=== PATIENT | male | born 1960 | race African-American/Black ===

== ENCOUNTER 2017-10-29 12:08 | Emergency (ER) | payer OTHER, MEDICAID ==
[2017-10-29 14:37] VITALS: BP 156/105
== END 2017-10-29 14:37 | disposition home or self-care (01) ==
LOC: ED 12:08
DX: R06.02 Shortness of breath (principal); Z59.0 Homelessness
CPT/HCPCS: J7613; J7644; Q0092

== ENCOUNTER 2017-10-30 00:34 | Emergency (ER) | payer OTHER, MEDICAID ==
[2017-10-30 02:11] VITALS: BP 150/86
== END 2017-10-30 02:11 | disposition home or self-care (01) ==
LOC: ED 00:34
DX: S16.1XXA Strain of muscle, fascia and tendon at neck level, initial encounter (principal); M62.830 Muscle spasm of back; F17.210 Nicotine dependence, cigarettes, uncomplicated; X50.9XXA Other and unspecified overexertion or strenuous movements or postures, initial encounter; Y93.89 Activity, other specified; Y99.8 Other external cause status; Y92.89 Other specified places as the place of occurrence of the external cause

== ENCOUNTER 2017-10-31 08:52 | Emergency (ER) | payer OTHER, MEDICAID ==
[~2017-10-31] VITALS: Ht 180.3 cm; Wt 85.3 kg
[2017-10-31 12:36] VITALS: BP 130/89
== END 2017-10-31 12:36 | disposition home or self-care (01) ==
LOC: ED 08:52
DX: S92.022A Displaced fracture of anterior process of left calcaneus, initial encounter for closed fracture (principal); G89.29 Other chronic pain; M54.2 Cervicalgia; G40.909 Epilepsy, unspecified, not intractable, without status epilepticus; Z59.0 Homelessness; X58.XXXA Exposure to other specified factors, initial encounter; Y93.89 Activity, other specified; Y99.8 Other external cause status; Y92.89 Other specified places as the place of occurrence of the external cause

== ENCOUNTER 2017-11-11 21:01 | Inpatient (IN) | payer OTHER, MEDICAID ==
[~2017-11-11] VITALS: Ht 170.2 cm; Wt 97.3 kg
[2017-11-11 22:44] LABS: BASOPHIL % 0.9 % (0-2); PLATELET COUNT 216 x10^3mcL (130-400); RED CELL DISTRIBUTION WIDTH 13.8 % (11.5-14.5)
[2017-11-11 22:53] LABS: CALCIUM 8.6 mg/dL (8.5-10.1); CARBON DIOXIDE 28.5 mmol/L (21-32); CHLORIDE SERUM 99 mmol/L (98-107); CREATININE SERUM 1.9 mg/dL (0.7-1.3); GFR1 39 mL/min; GLUCOSE SERUM 119 mg/dL (74-106); POTASSIUM SERUM 3.2 mmol/L (3.5-5.1); SODIUM SERUM 135 mmol/L (136-145)
[2017-11-11 22:57] LABS: ALBUMIN 3.6 g/dL (3.4-5.0); ALKALINE PHOSPHATASE 76 U/L (46-116); ALT/SGPT 140 U/L (16-63); AST/SGOT 347 U/L (15-37); BILIRUBIN TOTAL 0.4 mg/dL (0.20-1.00)
[2017-11-12] VITALS (15 sets, daily range): BP systolic 121–182; BP diastolic 60–138
[2017-11-12 00:33] LABS: AMPHETAMINE QUAL UR NONE DETECTED (NEG <=1000)
[2017-11-12 03:14] LABS: MAGNESIUM 2.3 mg/dL (1.8-2.4); PHOSPHOROUS 3.6 mg/dL (2.5-4.9)
[2017-11-12 03:17] LABS: FREE T4 0.17 ng/dL (0.76-1.46)
[2017-11-12 03:44] LABS: CHOLESTEROL/HDL RATIO 1.9
[2017-11-12 03:45] LABS: FREE THYROXINE INDEX 0.1 ug/dL (1.4-4.5); T4(THYROXINE) 0.3 ug/dL (4.7-13.3)
[2017-11-12 16:29] LABS: UA SPECIFIC GRAVITY 1.015 (1.005-1.035); microscopic required? YES; urine erythrocyte 3+ (NEGATIVE)
[2017-11-12 18:11] LABS: IRON 24 ug/dL (65-170); TOTAL IRON BINDING CAPACITY 290 ug/dL (250-450)
[2017-11-12 18:52] LABS: RED BLOOD CELLS 4.27 M/mm3 (4.52-5.90)
[2017-11-13] VITALS (16 sets, daily range): BP systolic 121–163; BP diastolic 69–128
[2017-11-13 05:20] LABS: BASOPHIL % 0.1 % (0-2); PLATELET COUNT 217 x10^3mcL (130-400)
[2017-11-13 05:26] LABS: RED CELL DISTRIBUTION WIDTH 15.1 % (11.5-14.5)
[2017-11-13 05:42] LABS: CALCIUM 7.9 mg/dL (8.5-10.1); CARBON DIOXIDE 26.6 mmol/L (21-32); CHLORIDE SERUM 106 mmol/L (98-107); CREATININE SERUM 1.1 mg/dL (0.7-1.3); GFR1 > 60 mL/min; GLUCOSE SERUM 123 mg/dL (74-106); MAGNESIUM 2.2 mg/dL (1.8-2.4); PHOSPHOROUS 3.6 mg/dL (2.5-4.9); POTASSIUM SERUM 3.5 mmol/L (3.5-5.1); SODIUM SERUM 140 mmol/L (136-145)
[2017-11-13 05:44] LABS: FREE T4 0.33 ng/dL (0.76-1.46)
[2017-11-13 05:45] LABS: FREE THYROXINE INDEX 0.5 ug/dL (1.4-4.5); T4(THYROXINE) 1.4 ug/dL (4.7-13.3)
[2017-11-14] VITALS (18 sets, daily range): BP systolic 119–160; BP diastolic 65–94
[2017-11-14 05:22] LABS: PLATELET COUNT 210 x10^3mcL (130-400)
[2017-11-14 05:25] LABS: BASOPHIL % 0 % (0-2); RED CELL DISTRIBUTION WIDTH 15.6 % (11.5-14.5)
[2017-11-14 05:41] LABS: CALCIUM 8.2 mg/dL (8.5-10.1); CARBON DIOXIDE 24.1 mmol/L (21-32); CHLORIDE SERUM 109 mmol/L (98-107); CREATININE SERUM 1.1 mg/dL (0.7-1.3); GFR1 > 60 mL/min; GLUCOSE SERUM 156 mg/dL (74-106); MAGNESIUM 2.3 mg/dL (1.8-2.4); PHOSPHOROUS 2.8 mg/dL (2.5-4.9); POTASSIUM SERUM 3.3 mmol/L (3.5-5.1); SODIUM SERUM 142 mmol/L (136-145)
[2017-11-14 22:15] LABS: FREE T4 0.35 ng/dL (0.76-1.46)
[2017-11-14 22:20] LABS: FREE THYROXINE INDEX 0.7 ug/dL (1.4-4.5); T4(THYROXINE) 2.3 ug/dL (4.7-13.3)
[2017-11-15] VITALS (17 sets, daily range): BP systolic 127–154; BP diastolic 50–99
[2017-11-15 05:19] LABS: CALCIUM 8.4 mg/dL (8.5-10.1); CARBON DIOXIDE 26.3 mmol/L (21-32); CHLORIDE SERUM 109 mmol/L (98-107); CREATININE SERUM 1.2 mg/dL (0.7-1.3); GFR1 > 60 mL/min; GLUCOSE SERUM 161 mg/dL (74-106); POTASSIUM SERUM 3.5 mmol/L (3.5-5.1); SODIUM SERUM 143 mmol/L (136-145)
[2017-11-15 05:38] LABS: PLATELET COUNT 221 x10^3mcL (130-400)
[2017-11-15 05:39] LABS: BASOPHIL % 0 % (0-2); RED CELL DISTRIBUTION WIDTH 16.1 % (11.5-14.5)
[2017-11-16] VITALS (11 sets, daily range): BP systolic 136–177; BP diastolic 71–108
[2017-11-16 04:47] LABS: BASOPHIL % 0.2 % (0-2); PLATELET COUNT 210 x10^3mcL (130-400)
[2017-11-16 04:49] LABS: RED CELL DISTRIBUTION WIDTH 15.7 % (11.5-14.5)
[2017-11-16 04:51] LABS: CALCIUM 8.3 mg/dL (8.5-10.1); CARBON DIOXIDE 29.1 mmol/L (21-32); CHLORIDE SERUM 106 mmol/L (98-107); CREATININE SERUM 1.1 mg/dL (0.7-1.3); GFR1 > 60 mL/min; GLUCOSE SERUM 181 mg/dL (74-106); POTASSIUM SERUM 3.1 mmol/L (3.5-5.1); SODIUM SERUM 142 mmol/L (136-145)
[2017-11-16 05:02] LABS: T3 TOTAL 0.07 ng/mL
[2017-11-16 05:05] LABS: FREE T4 0.39 ng/dL (0.76-1.46)
[2017-11-16 05:10] LABS: FREE THYROXINE INDEX 0.7 ug/dL (1.4-4.5)
[2017-11-17 03:17] VITALS: BP 158/94
[2017-11-17 05:16] LABS: BASOPHIL % 0.1 % (0-2); PLATELET COUNT 209 x10^3mcL (130-400)
[2017-11-17 05:22] LABS: RED CELL DISTRIBUTION WIDTH 15.9 % (11.5-14.5)
[2017-11-17 05:32] LABS: CALCIUM 8.5 mg/dL (8.5-10.1); CARBON DIOXIDE 33.9 mmol/L (21-32); CHLORIDE SERUM 100 mmol/L (98-107); CREATININE SERUM 1.1 mg/dL (0.7-1.3); GFR1 > 60 mL/min; GLUCOSE SERUM 138 mg/dL (74-106); PHOSPHOROUS 2.8 mg/dL (2.5-4.9); SODIUM SERUM 139 mmol/L (136-145)
[2017-11-17 05:36] LABS: FREE T4 0.43 ng/dL (0.76-1.46)
[2017-11-17 05:41] LABS: T3 TOTAL 0.08 ng/mL
[2017-11-17 05:46] LABS: FREE THYROXINE INDEX 0.4 ug/dL (1.4-4.5); T4(THYROXINE) 1.2 ug/dL (4.7-13.3)
[2017-11-17 05:47] LABS: POTASSIUM SERUM 2.5 mmol/L (3.5-5.1)
[2017-11-17 07:57] VITALS: BP 146/76
[2017-11-17 08:25] VITALS: Ht 170.2 cm; Wt 97.3 kg
[2017-11-17 12:57] VITALS: BP 137/79
[2017-11-17 14:29] LABS: CALCIUM 8.4 mg/dL (8.5-10.1); CARBON DIOXIDE 34.2 mmol/L (21-32); CHLORIDE SERUM 100 mmol/L (98-107); CREATININE SERUM 1.2 mg/dL (0.7-1.3); GFR1 > 60 mL/min; GLUCOSE SERUM 135 mg/dL (74-106); SODIUM SERUM 140 mmol/L (136-145)
[2017-11-17 14:46] LABS: POTASSIUM SERUM 2.6 mmol/L (3.5-5.1)
[2017-11-17 18:25] LABS: CALCIUM 8.5 mg/dL (8.5-10.1); CARBON DIOXIDE 34.9 mmol/L (21-32); CHLORIDE SERUM 100 mmol/L (98-107); CREATININE SERUM 1.3 mg/dL (0.7-1.3); GFR1 > 60 mL/min; GLUCOSE SERUM 177 mg/dL (74-106); SODIUM SERUM 140 mmol/L (136-145)
[2017-11-17 18:30] LABS: POTASSIUM SERUM 2.5 mmol/L (3.5-5.1)
[2017-11-17 21:42] VITALS: BP 141/88
[2017-11-18 02:16] LABS: CALCIUM 8.1 mg/dL (8.5-10.1); CARBON DIOXIDE 32.3 mmol/L (21-32); CHLORIDE SERUM 99 mmol/L (98-107); CREATININE SERUM 1.2 mg/dL (0.7-1.3); GFR1 > 60 mL/min; GLUCOSE SERUM 181 mg/dL (74-106); SODIUM SERUM 140 mmol/L (136-145)
[2017-11-18 02:31] LABS: POTASSIUM SERUM 2.9 mmol/L (3.5-5.1)
[2017-11-18 05:54] VITALS: BP 136/91
[2017-11-18 07:35] LABS: PLATELET COUNT 190 x10^3mcL (130-400)
[2017-11-18 07:38] LABS: BASOPHIL % 0 % (0-2); RED CELL DISTRIBUTION WIDTH 15.6 % (11.5-14.5)
[2017-11-18 07:56] LABS: CARBON DIOXIDE 34.3 mmol/L (21-32); CHLORIDE SERUM 101 mmol/L (98-107); CREATININE SERUM 1.1 mg/dL (0.7-1.3); GFR1 > 60 mL/min; GLUCOSE SERUM 138 mg/dL (74-106); MAGNESIUM 2.1 mg/dL (1.8-2.4); PHOSPHOROUS 2.7 mg/dL (2.5-4.9); SODIUM SERUM 142 mmol/L (136-145)
[2017-11-18 07:59] LABS: POTASSIUM SERUM 2.9 mmol/L (3.5-5.1)
[2017-11-18 08:12] LABS: FREE T4 0.75 ng/dL (0.76-1.46); FREE THYROXINE INDEX 1.7 ug/dL (1.4-4.5); T4(THYROXINE) 4.8 ug/dL (4.7-13.3)
[2017-11-18 08:13] LABS: T3 TOTAL 0.22 ng/mL
[2017-11-18 10:14] VITALS: BP 136/93
[2017-11-18 13:04] LABS: CALCIUM 7.9 mg/dL (8.5-10.1); CARBON DIOXIDE 34.5 mmol/L (21-32); CHLORIDE SERUM 100 mmol/L (98-107); CREATININE SERUM 1.1 mg/dL (0.7-1.3); GFR1 > 60 mL/min; GLUCOSE SERUM 147 mg/dL (74-106); SODIUM SERUM 138 mmol/L (136-145)
[2017-11-18 13:06] LABS: POTASSIUM SERUM 2.7 mmol/L (3.5-5.1)
[2017-11-18 14:01] VITALS: BP 122/79
[2017-11-18 14:32] VITALS: BP 140/63
[2017-11-18 17:46] VITALS: BP 125/80
[2017-11-18 19:35] LABS: CARBON DIOXIDE 33.2 mmol/L (21-32); CHLORIDE SERUM 101 mmol/L (98-107); CREATININE SERUM 1.2 mg/dL (0.7-1.3); GFR1 > 60 mL/min; GLUCOSE SERUM 199 mg/dL (74-106); POTASSIUM SERUM 3.4 mmol/L (3.5-5.1); SODIUM SERUM 138 mmol/L (136-145)
[2017-11-19 09:08] LABS: PLATELET COUNT 211 x10^3mcL (130-400)
[2017-11-19 09:10] LABS: BASOPHIL % 0 % (0-2); RED CELL DISTRIBUTION WIDTH 15.8 % (11.5-14.5)
[2017-11-19 09:37] LABS: CALCIUM 8.6 mg/dL (8.5-10.1); CARBON DIOXIDE 36.1 mmol/L (21-32); CHLORIDE SERUM 101 mmol/L (98-107); CREATININE SERUM 1.2 mg/dL (0.7-1.3); GFR1 > 60 mL/min; GLUCOSE SERUM 182 mg/dL (74-106); MAGNESIUM 2.2 mg/dL (1.8-2.4); PHOSPHOROUS 2.1 mg/dL (2.5-4.9); POTASSIUM SERUM 3.4 mmol/L (3.5-5.1); SODIUM SERUM 139 mmol/L (136-145)
[2017-11-19 10:00] VITALS: BP 139/83
[2017-11-19 17:01] VITALS: BP 123/79
[2017-11-19 21:17] VITALS: BP 122/77
[2017-11-20 05:52] VITALS: BP 132/85
[2017-11-20 11:34] LABS: CALCIUM 8.6 mg/dL (8.5-10.1); CARBON DIOXIDE 37.1 mmol/L (21-32); CHLORIDE SERUM 99 mmol/L (98-107); CREATININE SERUM 1.2 mg/dL (0.7-1.3); GFR1 > 60 mL/min; GLUCOSE SERUM 117 mg/dL (74-106); POTASSIUM SERUM 3.7 mmol/L (3.5-5.1); SODIUM SERUM 140 mmol/L (136-145)
[2017-11-20 16:58] VITALS: BP 126/86
[2017-11-20] MEDS ORDERED: FERL GT (17:04)
[2017-11-20] MEDS ORDERED: LIPI10 GT (17:04)
[2017-11-20] MEDS ORDERED: QUETIAPINE FUMA25 M1 PO (17:05)
[2017-11-20] MEDS ORDERED: SYN1 PO (17:05)
[2017-11-20] MEDS ORDERED: LOP50 PO (17:05)
[2017-11-20] MEDS ORDERED: ZES20 GT (17:05)
[2017-11-20] MEDS ORDERED: VITC GT (17:06)
[2017-11-20] MEDS ORDERED: THERA TABS1 TAB PO (17:06)
[2017-11-20] MEDS ORDERED: MEDDP PO (17:11)
[2017-11-20] MEDS ORDERED: SEROQUEL100 MG PO (17:41)
== END 2017-11-20 19:42 | DRG 207 ==
LOC: ED 21:01 → DU 11-12 02:05 → IC 11-12 02:05 → DU 11-12 04:51 → IC 11-12 05:44 → DU 11-12 05:54 → IC 11-12 06:04 → DU 11-17 14:21 → MU 11-20 05:16
PROVIDERS: Emergency Medicine; Family Medicine; Family Medicine Sports Medicine
PROC: 5A1955Z Respiratory Ventilation, Greater than 96 Consecutive Hours (ICD-10-PCS; principal; 2017-11-12)
PROC: 0BH17EZ Insertion of Endotracheal Airway into Trachea, Via Natural or Artificial Opening (ICD-10-PCS; 2017-11-12)
PROC: 05HM33Z Insertion of Infusion Device into Right Internal Jugular Vein, Percutaneous Approach (ICD-10-PCS; 2017-11-12)
DX: J96.01 Acute respiratory failure with hypoxia (principal); E03.5 Myxedema coma; N17.0 Acute kidney failure with tubular necrosis; G93.41 Metabolic encephalopathy; K72.01 Acute and subacute hepatic failure with coma; E43 Unspecified severe protein-calorie malnutrition; M62.82 Rhabdomyolysis; E87.1 Hypo-osmolality and hyponatremia; F20.0 Paranoid schizophrenia; J44.1 Chronic obstructive pulmonary disease with (acute) exacerbation; E03.9 Hypothyroidism, unspecified; E11.65 Type 2 diabetes mellitus with hyperglycemia; I10 Essential (primary) hypertension; R74.0 Nonspecific elevation of levels of transaminase and lactic acid dehydrogenase [LDH]; E87.6 Hypokalemia; E78.5 Hyperlipidemia, unspecified; D64.9 Anemia, unspecified; Z68.25 Body mass index [BMI] 25.0-25.9, adult; Z59.0 Homelessness
CPT/HCPCS: 36556; 36600; 82962; 83880; 84439; 90658; 90732; 92610-GN; 97530-GP; A4628; G0480; J0132; J1630; J1642; J1644; J1720; J2060; J2250; J2270; J2543; J2704; J2930; J3480; J3486; J3490; J7030; J7040; J7620; Q0092